=== PATIENT | male | born 1950 | race American Indian/Alaskan Native ===

== ENCOUNTER 2019-09-16 10:02 | Outpatient (CLI) | payer MEDICARE ==
--- NOTE | 2019-09-16 11:38 | Mammography Report ---
DEXA BONE DENSITY SCAN INDICATION: SCREENING FOR OSTEO. COMPARISON: None available. LUMBAR SPINE (L1-L4): Bone mineral density (BMD) is 1.105 g/cm2. T-score is 0.1 (standard deviations of Young Adult mean). Z-score is 0.2 (standard deviations of Age Matched mean). LEFT FEMORAL NECK: Bone mineral density (BMD) is 1.135 g/cm2. T-score is 0.7 (standard deviations of Young Adult mean). Z-score is 0.8 (standard deviations of Age Matched mean). IMPRESSION: 1. WHO Classification: Normal bone density. Fracture Risk: Not Increased. Signer Name: Damian Mccormack MD Signed: 09/16/2019 11:33 AM Workstation Name: [id number]
== END 2019-09-16 10:03 | disposition home or self-care (01) ==
LOC: MAMMO 10:02
PROVIDERS: ATTEND Family Medicine Adult Medicine
DX: Z13.820 Encounter for screening for osteoporosis (principal)
CPT/HCPCS: 77080